=== PATIENT | male | born 2000 | race Caucasian/White ===

== ENCOUNTER 2019-12-31 19:08 | Emergency (ER) | payer OTHER ==
[~2019-12-31] VITALS: Ht 177.8 cm; Wt 77.3 kg
[~2019-12-31 19:08] MED LIST: NOCURR
[2019-12-31] MEDS ORDERED: METH2.5 PO (19:57)
[2019-12-31 21:11] VITALS: BP 120/51
== END 2019-12-31 21:33 | disposition home or self-care (01) ==
LOC: EMS 19:08
DX: R05 Cough (principal); R06.02 Shortness of breath; F12.90 Cannabis use, unspecified, uncomplicated; Z20.828 Contact with and (suspected) exposure to other viral communicable diseases
CPT/HCPCS: 87635